=== PATIENT | male | born 1985 | race Two or more races ===

== ENCOUNTER 2020-06-22 10:39 | Emergency (ER) | payer MEDICAID, OTHER ==
[~2020-06-22] VITALS: Ht 188 cm; Wt 88.5 kg
[2020-06-22] MEDS ORDERED: ONDANSETRON ODT 4 MG TAB PO ONE (11:30)
[2020-06-22 11:43] VITALS: BP 138/96
== END 2020-06-22 13:37 | disposition home or self-care (01) ==
LOC: ER 10:39
DX: K52.9 Noninfective gastroenteritis and colitis, unspecified (principal); Z20.822 Contact with and (suspected) exposure to COVID-19
CPT/HCPCS: 36415; 87426; 99283; Q0162

== ENCOUNTER 2021-05-06 21:37 | Emergency (ER) | payer MEDICAID ==
[~2021-05-06] VITALS: Ht 188 cm; Wt 87.5 kg
[2021-05-06 23:13] VITALS: BP 183/89
[2021-05-07] MEDS ORDERED: GUAI600T23 PO (01:07)
[2021-05-07] MEDS ORDERED: IBUP800T27 PO (01:07)
[2021-05-07] MEDS ORDERED: ALBUAER3 IN (01:07)
== END 2021-05-07 01:30 | disposition home or self-care (01) ==
LOC: ER 21:41
DX: U07.1 COVID-19 (principal); I10 Essential (primary) hypertension
CPT/HCPCS: 36415; 87426

== ENCOUNTER 2021-11-22 15:18 | Emergency (ER) | payer MEDICAID ==
[~2021-11-22 15:18] MED LIST: ALBUAER3 IN; GUAI600T23 PO; IBUP800T27 PO
[2021-11-22 15:46] VITALS: BP 118/78
[2021-11-22] MEDS ORDERED: LIDOCAINE 1% HCL (LOCAL ANESTH.) INJ 20ML MDV IJ ONE (20:30)
[2021-11-22] MEDS ORDERED: HYDROcodone-ACET 5/325MG TAB PO ONE (21:30)
[2021-11-22] MEDS ORDERED: ONDANSETRON ODT 4 MG TAB PO ONE (21:30)
[2021-11-22] MEDS ORDERED: TETANUS-DIPTH-ACEL PERTUSSIS 0.5ML SYR Tdap IM ONE (21:30)
== END 2021-11-22 21:30 | disposition home or self-care (01) ==
LOC: ER 15:18
DX: S61.310A Laceration without foreign body of right index finger with damage to nail, initial encounter (principal); W26.8XXA Contact with other sharp object(s), not elsewhere classified, initial encounter; Y93.89 Activity, other specified; Y92.89 Other specified places as the place of occurrence of the external cause; Y99.8 Other external cause status
CPT/HCPCS: 73130; 99283; J2001; Q0162